=== PATIENT | female | born 1975 | race African-American/Black ===

== ENCOUNTER 2017-12-27 21:00 | Emergency (ER) | payer OTHER ==
[~2017-12-27] VITALS: Ht 165.1 cm; Wt 88.0 kg
[2017-12-27] MEDS ORDERED: FLEXERIL10 MG PO (22:20)
[2017-12-27] MEDS ORDERED: NAPROSYN500 MG PO (22:20)
[2017-12-27 22:31] VITALS: BP 154/93
== END 2017-12-27 22:31 | disposition home or self-care (01) ==
LOC: EME 21:00 → EXP 21:00
DX: S39.012A Strain of muscle, fascia and tendon of lower back, initial encounter (principal); S29.012A Strain of muscle and tendon of back wall of thorax, initial encounter; V49.40XA Driver injured in collision with unspecified motor vehicles in traffic accident, initial encounter; Y92.410 Unspecified street and highway as the place of occurrence of the external cause
CPT/HCPCS: 99281; 99284